=== PATIENT | male | born 1985 | race Caucasian/White ===

== ENCOUNTER 2020-01-15 18:34 | Emergency (ER) | payer OTHER ==
[~2020-01-15] VITALS: Ht 180.3 cm; Wt 111.2 kg
[2020-01-15 18:34] VITALS: BP 142/79
--- NOTE | 2020-01-15 19:26 | PHYS DOC ---
Past History Past Medical History: No Pertinent History Adult General Chief Complaint Chief Complaint: FLANK PAIN HPI HPI Patient is a 34-year-old healthy male who presents with right flank pain. Onset was 2 days ago without any known inciting event or trauma. Nothing known makes better or worse. Patient reports episodes of bilateral pain but more focal to right flank, mild radiation down to pubic region. Patient reports symptoms have been intermittent since onset. Patient reports he has had crippling pain that is brought him to his knees but was able to workout later in the day without issues. Patient has been afebrile, denies any chest pain, shortness of breath, abdominal pain, changes in urination or bowel habits, history of kidney stones Review of Systems Review of Systems Fourteen body systems of review of systems have been reviewed. See HPI for pertinent positives and negative responses, other luna all other systems are negative, non-pertinent or non-contributory Physical Exam Physical Exam Constitutional: Well developed, well nourished, no acute distress, non-toxic appearance. HENT: Normocephalic, atraumatic, bilateral external ears normal, oropharynx moist, no oral exudates, nose normal. Eyes: PERRLA, EOMI, conjunctiva normal, no discharge. Neck: Normal range of motion, no tenderness, supple, no stridor. Cardiovascular: Heart rate regular, sinus rhythm, no murmurs rubs or gallops Lungs & Thorax: Bilateral breath sounds clear to auscultation Abdomen: Bowel sounds normal, soft, no tenderness, no masses, no pulsatile masses. Nonsurgical abdomen, no peritoneal signs Skin: Warm, dry, no erythema, no rash. Back: No tenderness, right CVA tenderness Extremities: No tenderness, no cyanosis, no clubbing, ROM intact, no edema. Neurologic: Alert and oriented X 3, grossly normal motor & sensory function, no focal deficits noted. Psychologic: Affect normal, judgement normal, mood normal. Current Patient Data Vital Signs Vital Signs Date Time Temp Pulse Resp B/P (MAP) Pulse Ox O2 Delivery O2 Flow Rate FiO2 01/15/20 18:34 98.1 76 16 142/79 (100) 97 Room Air Lab Results Laboratory Tests Test 01/15/20 18:50 Urine Collection Type Unknown Urine Color Yellow Urine Clarity Clear Urine pH 5.5 Urine Specific [place] >=1.030 Urine Protein Neg (NEG-TRACE) Urine Glucose (UA) Neg mg/dL (NEG) Urine Ketones (Stick) Neg mg/dL (NEG) Urine Blood Neg (NEG) Urine Nitrite Neg (NEG) Urine Bilirubin Neg (NEG) Urine Urobilinogen Dipstick 0.2 mg/dL (0.2 mg/dL) Urine Leukocyte Esterase Neg (NEG) Urine RBC 0 /HPF (0-2) Urine WBC 0 /HPF (0-4) Urine Bacteria 0 /HPF (0-FEW) EKG EKG [] Radiology/Procedures Radiology/Procedures PROCEDURE: CT ABDOMEN PELVIS WO CONTRAST Exam: CT of abdomen and pelvis without contrast INDICATION: Severe right flank pain today TECHNIQUE: Sequential axial images through the abdomen and pelvis obtained without IV contrast. Sagittal and coronal reformatted images were reconstructed from the axial data and reviewed. Comparisons: None FINDINGS: Heart size is normal. No pericardial effusion. Visualized lung bases are clear. No pleural effusion. Evaluation of solid organs limited secondary to noncontrast technique. Diffuse hepatic steatosis. Spleen, pancreas, gallbladder and adrenals are unremarkable. There is a 2 mm nonobstructing calculus at the mid right and left kidney. No perinephric inflammation or hydronephrosis. No ureteral calculi. Bladder is decompressed not well evaluated. Prostate is not enlarged. Large and small bowel are unremarkable. Appendix is normal. No free intra-abdominal air or fluid. No obstruction. Abdominal aorta has a normal course and caliber. No enlarged abdominal lymph nodes are identified. No suspicious osseous lesions or acute fractures. IMPRESSION: 1. Nonobstructing renal calculi bilaterally. No evidence for obstructive uropathy. 2. Diffuse hepatic steatosis. Exposure: One or more of the following in the visualized dose reduction techniques were utilized for this examination: 1. Automated exposure control 2. Adjustment of the MA and/or KV according to patient size 3. Use of iterative of reconstructive technique Electronically signed by: Kofi Sharma MD (01/15/2020 8:35 PM) [id number] Course & Med Decision Making Course & Med Decision Making ABCs unremarkable Comprehensive history and physical exam obtained, pertinent diagnostic studies ordered Patient asymptomatic during today's visit, reviewed findings significant for nonobstructing kidney stones Discussed limited utility in further diagnostic work-up or intervention Case reviewed with patient at length, joint decision for discharge home in stable condition with close outpatient follow-up Advised OTC NSAIDs/Tylenol for as needed pain control Discussed utility for outpatient urology follow-up as needed or indicated by PCP Strict return precautions discussed at length with good understanding by patient, all questions and concerns addressed Stable, afebrile, ambulatory, asymptomatic patient discharged home in stable condition Geovani Disclaimer Geovani Disclaimer This electronic medical record was generated, in whole or in part, using a voice recognition dictation system. Departure Departure: Impression: Primary Impression: Bilateral renal stones Additional Impression: Hepatic steatosis Disposition: HOME/RESIDENCE PRIOR TO ADM Condition: STABLE Referrals: PCP,NO (PCP) Patient Instructions: Diet for Kidney Stones, Kidney Stones Additional Instructions: As discussed prior to ER departure, please call your primary care physician to follow-up in outpatient setting in upcoming 1 to 7 days time You will need to follow-up on bilateral 2 mm kidney stones in addition to findings of hepatic steatosis that were explained to you prior to ER departure Strict return precautions were discussed, please call your PCP, or our ER, or if severe enough free present to our ER for comprehensive evaluation and work-up of your symptoms It was a pleasure to take care of you and I hope you get feeling better soon! Justification of Admission: Justification of Admission: Justification of Admission Dx: N/A Problem Qualifiers SENIA WHITAKER DO Jan 15, 2020 19:26
[2020-01-15 20:06] LABS: BILIRUBIN,URINE NEG (NEG); CLARITY,URINE CLEAR; COLOR,URINE YELLOW; GLUCOSE,URINE NEG (NEG)
[2020-01-15 20:07] LABS: NITRITE,URINE NEG (NEG); UROBILINOGEN,URINE 0.2 mg/dL (0.2 mg/dL)
[2020-01-15 20:08] LABS: BACTERIA,URINE 0 /HPF (0-FEW); RBC,URINE 0 /HPF (0-2); WBC,URINE 0 /HPF (0-4)
--- NOTE | 2020-01-15 20:38 | RAD ---
Exam: CT of abdomen and pelvis without contrast INDICATION: Severe right flank pain today TECHNIQUE: Sequential axial images through the abdomen and pelvis obtained without IV contrast. Sagittal and coronal reformatted images were reconstructed from the axial data and reviewed. Comparisons: None FINDINGS: Heart size is normal. No pericardial effusion. Visualized lung bases are clear. No pleural effusion. Evaluation of solid organs limited secondary to noncontrast technique. Diffuse hepatic steatosis. Spleen, pancreas, gallbladder and adrenals are unremarkable. There is a 2 mm nonobstructing calculus at the mid right and left kidney. No perinephric inflammation or hydronephrosis. No ureteral calculi. Bladder is decompressed not well evaluated. Prostate is not enlarged. Large and small bowel are unremarkable. Appendix is normal. No free intra-abdominal air or fluid. No obstruction. Abdominal aorta has a normal course and caliber. No enlarged abdominal lymph nodes are identified. No suspicious osseous lesions or acute fractures. IMPRESSION: 1. Nonobstructing renal calculi bilaterally. No evidence for obstructive uropathy. 2. Diffuse hepatic steatosis. Exposure: One or more of the following in the visualized dose reduction techniques were utilized for this examination: 1. Automated exposure control 2. Adjustment of the MA and/or KV according to patient size 3. Use of iterative of reconstructive technique Electronically signed by: Kofi Sharma MD (01/15/2020 8:35 PM) [id number]
== END 2020-01-15 20:59 | disposition home or self-care (01) ==
LOC: ER 18:34
DX: N20.0 Calculus of kidney (principal); K76.0 Fatty (change of) liver, not elsewhere classified
CPT/HCPCS: 74176; 81001; 99284-25